=== PATIENT | male | born 1990 | race African-American/Black ===

== ENCOUNTER 2024-02-11 00:25 | Emergency (ER) | payer OTHER, SELFPAY ==
[2024-02-11 01:40] LABS: PT Prothrombin Time 11.5 SECONDS (9.5-12.5); PTT, Activated Partial Thromb 22.8 SECONDS (24.3-36.9); Protime INR 1.05
--- NOTE | 2024-02-11 02:05 | ER ---
Nurse's Notes [facility] Name: Hans Barnett Age: 33 yrs Sex: Male : 1990 Arrival Date: 02/11/2024 Time: 00:25 Bed IW10 Private MD: Diagnosis: Knee pain Presentation: 02/10 00:35 Chief complaint: Patient states: right leg/knee pain with a bump to posterior pf1 head,onset CHOCOLATIER,S/P fall while walking on the side of the road. [facility] stated patient was found laying on side of the road. 00:35 Coronavirus screen: At this time, unable to obtain information related to travel pf1 outside the [place] At this time, the client does not indicate any symptoms associated with coronavirus-19. Ebola Screen: No symptoms or risks identified at this time. Initial Sepsis Screen: Does the patient meet any 2 criteria? No. Patient's initial sepsis screen is negative. Does the patient have a suspected source of infection? No. Patient's initial sepsis screen is negative. Risk Assessment: Do you want to hurt yourself or someone else? Patient reports no desire to harm self or others. Onset of symptoms was February 10, 2024. 00:35 Method Of Arrival: EMS: [facility] pf1 00:35 Acuity: AYAD 3 pf1 Triage Assessment: 00:40 General: Appears in no apparent distress. comfortable, Behavior is calm, quiet. pf1 00:40 Pain: Complains of pain in right knee and posterior head Pain currently is 7 out of 10 pf1 on a pain scale. Pain began 2 hours ago. EENT: No deficits noted. No signs and/or symptoms were reported regarding the EENT system. Neuro: Level of Consciousness is awake, alert, obeys commands, confused, Oriented to person. Cardiovascular: No deficits noted. Capillary refill < 3 seconds Patient's skin is warm and dry. Respiratory: No deficits noted. Airway is patent Respiratory effort is even, unlabored, Respiratory pattern is regular, symmetrical. GI: No deficits noted. Abdomen is round non-distended, : No deficits noted. No signs and/or symptoms were reported regarding the genitourinary system. Musculoskeletal: Reports pain in right knee and posterior head since [place]. Pain is 7 out of 10 on a pain scale. Injury Description: pain to right knee and posterior head. Historical: - Allergies: 00:54 Unable to obtain; pf1 - PMHx: 00:54 Unable to Obtain; pf1 - PSHx: 00:54 Unable to Obtain; pf1 - Immunization history:: Adult Immunizations unknown. - Infectious Disease History:: Denies. - Social history:: Smoking status: Patient denies any tobacco usage or history of. Patient/guardian denies using alcohol, street drugs. Screenin:57 [facility] ED Fall Risk Assessment (Adult) History of falling in the last 3 months, pf1 including since admission No falls in past 3 months (0 pts) Confusion or Disorientation Yes (5 pts) Intoxicated or Sedated No (0 pts) Impaired Gait No (0 pts) Mobility Assist Device Used No (0 pt) Altered Elimination No (0 pt) Score/Fall Risk Level 3 or more points = High Risk Oriented to surroundings, Maintained a safe environment, Educated pt \\T\\ family on fall prevention, incl call for assistance when getting out of bed, Assessed \\T\\ reinforced patient's understanding of fall precautions, Provided non-skid footwear, Hourly rounding (assess needs \\T\\ fall precautionary measures) done, Used ambulatory aids as needed (educated on \\T\\ assisted with), Used gait belt as appropriate Implemented a Fall Risk Plan of Care, Apply high fall risk patient identification: yellow non skid footwear/ fall signage, Placed fall mat w/ non beveled edge next to bed, Activated bed/chair alarm, Remained w/in arm's length of patient and in sight while toileting, Offered frequent toileting (1:1 observation), Remained with patient while ambulating, Utilized family, sitter, or virtual marine technician as indicated. Abuse screen: Denies threats or abuse. Nutritional screening: No deficits noted. Tuberculosis screening: No symptoms or risk factors identified. Assessment: 00:45 Reassessment: see triage assessment. pf1 01:32 Reassessment: Patient appears in no apparent distress at this time. Patient and/or pf1 family updated on plan of care and expected duration. Pain level reassessed. 02:13 Reassessment: pt is expressing threats prior to discharge. police officers present at the time of discharge. Psych: 00:35 [place] Suicide Severity Screening: In the past month, have you wished you were pf1 or wished you could go to sleep and not wake up? Patient responds "No." "In the past month, have you actually had any thoughts of killing yourself?" Patient responds "no." "In your lifetime, have you ever done anything, started to do anything, or prepared to do anything to end your life?" Patient responds "no.". 00:35 Subjective: Hallucinations are auditory. Objective: Patient is uncooperative, pf1 challenging, suspicious, Speech is rambling, rapid, Affect is inappropriate. Interventions:. Safety Checks: No visitors are present at this time. 01:00 Objective: Patient is uncooperative, aggressive, challenging, suspicious, Speech is pf1 incoherent, rambling, rapid, Affect is inappropriate. 02:00 Objective: Patient is uncooperative, aggressive, challenging, suspicious, Speech is pf1 incoherent, rambling, rapid, Affect is inappropriate. 02:09 Pt denies substance abuse. rv 03:43 Objective: Patient is uncooperative. pf1 Vital Signs: 00:35 BP 154 / 98; Pulse 95; Resp 16; Temp 98.6; Pulse Ox 99% on R/A; Weight 136.08 kg; pf1 Height 6 ft. 5 in. ; Pain 7/10; 01:30 BP 138 / 95; Pulse 92; Resp 16; Temp 97.9; Pulse Ox 100% on R/A; pf1 00:35 Body Mass Index 35.57 (136.08 kg, 195.58 cm) pf1 00:35 Pain Scale: Adult pf1 ED Course: 00:40 Arm band placed on right wrist. pf1 00:42 Patient arrived in ED. jb4 00:42 Ganesh Mao MD is Attending Physician. sp3 00:48 Keshia Grajeda, AURA is Primary Nurse. pf1 00:53 Triage completed. pf1 00:58 No provider procedures requiring assistance completed. pf1 00:58 Initial lab(s) drawn, by ED staff, sent to lab. pf1 00:59 Patient believed we would be doing experiments on blood taken and then refused to ty provide any lab draws. 00:59 Acetaminophen Sent. pf1 00:59 Basic Metabolic Panel Sent. pf1 00:59 ETOH Level Sent. pf1 00:59 Hepatic Function Sent. pf1 00:59 PT-INR Sent. pf1 01:00 Ptt, Activated Sent. pf1 01:00 Salicylate Sent. pf1 01:01 Missed attempt(s): 22 gauge in left antecubital area. Bleeding controlled, band aid jb4 applied, catheter tip intact. 01:28 CT Head Brain wo Cont In Process Unspecified. EDMS 01:44 Knee Right 2 View XRAY In Process Unspecified. EDMS 01:46 Notified primary nurse of patient making statements of "swinging on you" and "do you ty have the ability to call for back up". 01:47 Patient stated "I have no problem bucking me" and that I should be "Bucking up to him", ty I advised to the Patient that " I do not understand". Patient informed me that I do and asked if I know Rodney. I informed the patient that I do not know a Rodney. Patient proceeded to ask "Did you have anything to do with Rodney". I informed the patient again "I do not know a Rodney". Patient looked at me, turned around and sat in the bed. 01:48 Patient asked if I like playing games and informed me that I know Rodney and has become ty irritated as patient is under the impression that I am lying. Patient has informed me that I am the smart/dumb person to "mess with" the right/wrong person and that it is definitely right place at the wrong time for me to be at "[facility]" I informed the patient that this is not "[facility]" and that they are at "[facility] in [facility]" patient looked at me squinted and made a "hmmm" sound. 01:50 Patient has become more irritated and I have ceased any further interaction. ty 02:00 Police notified at 01:51 [address] to assist with discharging patient. kmf 02:13 pt refused to be placed on the monitor. rv 02:14 Patient did not have IV access during this emergency room visit. rv 02:15 Provided Education on: follow up. pf1 02:19 Primary Nurse role handed off by Keshia Grajeda, AURA pf1 Administered Medications: No medications were administered Medication: 02:15 VIS not applicable for this client. rv Outcome: 02:05 Discharge ordered by MD. alejandra 02:11 Discharged to home ambulatory, rv 02:11 Condition: good 02:11 Discharge instructions given to patient, Instructed on discharge instructions, follow up and referral plans. Demonstrated understanding of instructions, follow-up care, 02:15 Patient left the ED. rv 02:15 Patient left the ED. pf1 Signatures: Dispatcher [employer] EDMS Carmelo Vuong, RN RN jb4 Eugenio He RN RN rv Ganesh Mao MD MD sp3 Keshia Grajeda RN RN pf1 Zoey Aguilera [facility] Humberto Tolentino Corrections: (The following items were deleted from the chart) 01:34 00:59 CBC+H.LAB.BRZ drawn and sent. pf1 EDOH 01:52 01:46 Notified primary nurse of Patient making statements of "swinging on me and do I kmf have the ability to call for back up" asked patient for clarification and was advised "You know what I mean" [facility] 01:55 01:49 Patient advised "he has no problem bucking me" I advised him "I don't kmf understand". Patient asked "Did you have anything to do with Rodney" Patient advised "I do not know a Rodney" [facility] 03:38 02:35 Patient left the ED. rv pf1 03:42 01:46 Notified primary nurse of Patient making statements of "swinging on me and do I kmf have the ability to call for back up" asked patient for clarification and was advised "You know what I mean" [facility] 03:42 01:48 Patient advised "he has no problem bucking me" I advised him "I don't kmf understand". Patient asked "Did you have anything to do with Rodney" Patient advised "I do not know a Rodney" [facility] 03:42 01:49 Patient has become irritated as he does not believe that I do not know a Rodney. [facility] 03:42 02:00 BP 138 / 95; Pulse 92bpm; Resp 16bpm; Pulse Ox 100% RA; Temp 97.9F; pf1 pf1
--- NOTE | 2024-02-11 02:06 | EDPHYS ---
Physician Documentation [facility] Name: Hans Barnett Age: 33 yrs Sex: Male : 1990 Arrival Date: 02/11/2024 Time: 00:25 Bed IW10 Private MD: ED Physician Ganesh Mao HPI: 02/10 00:56 This 33 yrs old Black Male presents to ER via EMS with complaints of Odd behavior and sp3 right knee pain and headache. 00:58 33-year-old male with unknown medical history presents via EMS after police encounter sp3 with him when they found him on the side of the road. Patient states that he fell and injured his right knee and his head. No further history available. Per EMS, on the way here patient was speaking to "Rodney Ghotra" and "Yoav Barnett". Patient appears to be responding to internal stimuli. No old records available. Review of systems, history and physical severely limited secondary to this.. Historical: - Allergies: 00:54 Unable to obtain; pf1 - PMHx: 00:54 Unable to Obtain; pf1 - PSHx: 00:54 Unable to Obtain; pf1 - Immunization history:: Adult Immunizations unknown. - Infectious Disease History:: Denies. - Social history:: Smoking status: Patient denies any tobacco usage or history of. Patient/guardian denies using alcohol, street drugs. ROS: 00:58 Unable to obtain ROS due to patient being uncooperative, sp3 Exam: 00:59 Constitutional: This is a well developed, well nourished patient who is awake, alert, sp3 and in no acute distress. Head/Face: Normocephalic, atraumatic. Eyes: Pupils equal round and reactive to light, extra-ocular motions intact. Lids and lashes normal. Conjunctiva and sclera are non-icteric and not injected. Cornea within normal limits. Periorbital areas with no swelling, redness, or edema. Neck: Trachea midline, no thyromegaly or masses palpated, and no cervical lymphadenopathy. Supple, full range of motion without nuchal rigidity, or vertebral point tenderness. No Meningismus. Chest/axilla: Normal chest wall appearance and motion. Nontender with no deformity. No lesions are appreciated. Cardiovascular: Regular rate and rhythm with a normal S1 and S2. No gallops, murmurs, or rubs. Normal PMI, no JVD. No pulse deficits. Respiratory: Lungs have equal breath sounds bilaterally, clear to auscultation and percussion. No rales, rhonchi or wheezes noted. No increased work of breathing, no retractions or nasal flaring. Abdomen/GI: Soft, non-tender, with normal bowel sounds. No distension or tympany. No guarding or rebound. No evidence of tenderness throughout. Back: No spinal tenderness. No costovertebral tenderness. Full range of motion. Skin: Warm, dry with normal turgor. Normal color with no rashes, no lesions, and no evidence of cellulitis. MS/ Extremity: Pulses equal, no cyanosis. Neurovascular intact. Full, normal range of motion. 00:59 Psych: Neurological exam grossly normal with no observable deficits based on patient not cooperating. Patient denies suicidal ideation although he became very angry when asked. He does appear to be responding to internal stimuli and likely has psychosis occurring. Unknown other questions as patient is very uncooperative.. Vital Signs: 00:35 BP 154 / 98; Pulse 95; Resp 16; Temp 98.6; Pulse Ox 99% on R/A; Weight 136.08 kg; pf1 Height 6 ft. 5 in. ; Pain 7/10; 01:30 BP 138 / 95; Pulse 92; Resp 16; Temp 97.9; Pulse Ox 100% on R/A; pf1 00:35 Body Mass Index 35.57 (136.08 kg, 195.58 cm) pf1 00:35 Pain Scale: Adult pf1 MDM: 00:43 Patient medically screened. sp3 01:00 Data reviewed: vital signs, nurses notes, lab test result(s), radiologic studies. ED sp3 course: 33-year-old male with probable psych history and unknown possible trauma. Will obtain laboratory values, urine analysis, x-ray of the right knee and CT scan of the head to ensure there is no somatic or other traumatic related injury causing symptoms. If workup is negative we will consult with [facility] for possible placement. Patient denies suicidal ideation and and homicidal ideation upon later interrogation. Currently patient is here voluntarily. Disposition pending workup and patient course.. 02:03 ED course: Patient CT scan and x-ray negative on my read. PT/INR is also normal. sp3 Remainder of blood work is still pending however patient is becoming more agitated and aggressive towards staff. He threatened 1 staff member already. I do not believe he has a somatic process or delirium as an etiology of his behavior. His presenting complaint was knee pain which has already been evaluated. We will discharge him in PD custody and follow-up on the remainder of his outstanding workup to the best that we can. Given safety issues, I believe this is the best course of action currently. Local police is here to assist as needed.. 02/10 00:44 Order name: Acetaminophen; Complete Time: 02: sp3 02/10 00:44 Order name: Basic Metabolic Panel; Complete Time: 02: sp3 02/10 00:44 Order name: ETOH Level; Complete Time: : sp3 02/10 00:44 Order name: Hepatic Function; Complete Time: 02: sp3 02/10 00:44 Order name: PT-INR; Complete Time: 01:50 sp3 02/10 00:44 Order name: Ptt, Activated; Complete Time: 01:50 sp3 02/10 00:44 Order name: Salicylate; Complete Time: 02:27 sp3 02/10 00:44 Order name: Urine Drug Screen; Complete Time: 02:27 sp3 02/10 00:57 Order name: CT Head Brain wo Cont 3 02/10 00:57 Order name: Knee Right 2 View XRAY 3 02/10 00:44 Order name: EKG; Complete Time: 00:44 sp3 02/10 00:44 Order name: EKG - Nurse/Tech; Complete Time: 01:32 sp3 02/10 00:44 Order name: Labs collected and sent; Complete Time: 00:59 sp3 02/10 00:44 Order name: Suicide Screening ([place]); Complete Time: 00:59 sp3 Administered Medications: No medications were administered Disposition Summary: 02/11/24 02:05 Discharge Ordered Notes: Location: Home sp3 Condition: Stable sp3 Diagnosis - Knee pain sp3 Followup: sp3 - With: Private Physician - When: Upon discharge from the Emergency Department - Reason: Continuance of care Discharge Instructions: - Discharge Summary Sheet sp3 - Acute Knee Pain, Adult sp3 Forms: - Medication Reconciliation Form sp3 - Thank You Letter sp3 - Antibiotic Education sp3 - Prescription Opioid Use sp3 - Patient Portal Instructions sp3 - Leadership Thank You Letter sp3 Signatures: Dispatcher [employer] EDMS Ganesh Mao MD MD sp3 Keshia Grajeda RN RN pf1 Corrections: (The following items were deleted from the chart) 00:44 00:44 ACETAMINOPHEN+C.LAB.BRZ ordered. EDMS EDMS 00:44 00:44 BASIC METABOLIC PANEL+C.LAB.BRZ ordered. EDMS EDMS 00:44 00:44 ETHANOL+C.LAB.BRZ ordered. EDMS EDMS 00:44 00:44 HEPATIC FUNCTION+C.LAB.BRZ ordered. EDMS EDMS 00:44 00:44 PROTIME (+INR)+COAG.LAB.BRZ ordered. EDMS EDMS 00:44 00:44 PTT, ACTIVATED+COAG.LAB.BRZ ordered. EDMS EDMS 00:44 00:44 SALICYLATE+C.LAB.BRZ ordered. EDMS EDMS 00:44 00:44 URINE DRUG SCREEN+UC.LAB.BRZ ordered. EDMS EDMS 00:57 00:57 Head Brain Wo Cont+CT.RAD.BRZ ordered. EDMS EDMS 00:57 00:57 Knee Right 2 View+RAD.RAD.BRZ ordered. EDMS EDMS 01:34 00:44 CBC+H.LAB.BRZ ordered. EDMS EDMS 02:06 02:03 ED course: Patient CT scan and x-ray negative on my read. PT/INR is also normal. sp3 Remainder of blood work is still pending however patient is becoming more agitated and aggressive towards staff. He threatened 1 staff member already. I believe patient's symptoms are mainly psychiatric versus a nonmedical issue. I do not believe he has a somatic process or delirium as an etiology of his behavior. We will discharge him in PD custody and follow-up on the remainder of his outstanding workup to the best that we can. Given safety issues, I believe this is the best course of action currently. Local police is here to assist as needed.. sp3
[2024-02-11 02:09] LABS: ALT/SGPT 45 U/L (16-61); AST/SGOT 26 U/L (15-37); Albumin 3.9 g/dL (3.4-5.0); Albumin/Globulin Ratio 0.9 (1.1-1.8); Alkaline Phosphatase 80 U/L (45-117); Anion Gap 9.6 mEq/L (5.0-15.0); BUN Blood Urea Nitrogen 9 mg/dL (7-18); Bicarbonate 28 mEq/L (21-32); Bilirubin Direct 0.1 mg/dL (0-0.2); Bilirubin Indirect, Calculated 0.3 mg/dL (0.2-0.8); Bilirubin Total 0.4 mg/dL (0.2-1.0); Globulin 4.3 g/dL (2.3-3.5); Glomerular Filtration Rate 98 ml/min (=/>90); Glucose Level 108 mg/dL (74-106); Potassium 3.6 mEq/L (3.5-5.1); Protein, Total 8.2 g/dL (6.4-8.2); Sodium Level 140 mEq/L (136-145)
[2024-02-11 02:25] LABS: Barbiturates NEGATIVE (NEGATIVE); Benzodiazepines NEGATIVE (NEGATIVE); Cocaine NEGATIVE (NEGATIVE); METHAMPHETAM NEGATIVE (NEGATIVE); Methadone NEGATIVE (NEGATIVE); Opiates NEGATIVE (NEGATIVE); Phencyclidine NEGATIVE (NEGATIVE); THC Cannibis NEGATIVE (NEGATIVE)
[2024-02-11 06:02] VITALS: BP 154/98; TEMP 98.6; O2SAT 99
--- NOTE | 2024-02-13 22:18 | RAD REPORT ---
EXAM DESCRIPTION: RAD - Knee Right 2 View - 02/11/2024 5:49 am CLINICAL HISTORY: The patient is 33 years old and is Male; trauma TECHNIQUE: Frontal and/or lateral views of the right knee. COMPARISON: No relevant prior studies available. FINDINGS: BONES/JOINTS: Tricompartmental joint space narrowing is present, most prominent along th e medial compartment. Patellofemoral joint space narrowing and spurring is also present. No acute f racture. No dislocation. SOFT TISSUES: Soft tissue swelling along the anterior medial aspect of the lower leg is present. IMPRESSION: Degenerative change about the knee, most prominent along the medial compartment. Electronically signed by: Dayr Brown MD 02/11/2024 01:59 AM CDT
--- NOTE | 2024-02-13 22:20 | RAD REPORT ---
EXAM DESCRIPTION: CT - Head Brain Wo Cont - 02/11/2024 7:02 am CLINICAL HISTORY: The patient is 33 years old and is Male; TRAUMA TECHNIQUE: Axial computed tomography images of the head/brain without intravenous contrast. Sagitt al and coronal reformatted images were created and reviewed. This CT exam was performed using one o r more of the following dose reduction techniques: automated exposure control, adjustment of the mA and/or kV according to patient size, and/or use of iterative reconstruction technique. COMPARISON: No relevant prior studies available. FINDINGS: Brain: No intracranial hemorrhage, extraaxial fluid collection or edema. Ventricles: No hydrocephalus. Bones/joints: Intact calvarium. Soft tissues: Unremarkable. Sinuses: Clear. Mastoid air cells: Clear. IMPRESSION: Normal head/brain CT. Electronically signed by: Laureen Monte MD 02/11/2024 01:51 AM CDT Due to temporary technical issues with the PACS/Fluency reporting system, reports are being signed by the in house radiologists without review as a courtesy to insure prompt reporting. The interpreting radiologist is fully responsible for the content of the report.
== END 2024-02-11 02:35 | disposition home or self-care (01) ==
LOC: ER 00:25
DX: M25.561 Pain in right knee (principal); R51.9 Headache, unspecified
CPT/HCPCS: 36415; 70450; 80048; 80076; 80143; 80179; 80307; 82077; 85610; 85730; 93005; 99284